=== PATIENT | female | born 1980 | race Caucasian/White ===

== ENCOUNTER 2018-08-07 01:28 | Inpatient (IN) | payer OTHER ==
[2018-08-07] MEDS ORDERED: Lactated Ringers 1000 ML Bag* 1,000 ML IV ONE (02:06)
[2018-08-07] MEDS ORDERED: Buffered Lidocaine 1% SYRIN* 1 ML/SYRINGE INTRADERM ONE (02:06)
[2018-08-07] MEDS ORDERED: Lactated Ringers 1000 ML Bag* 1,000 ML IV SCH ×2 (03:00→08:00)
--- NOTE | 2018-08-07 03:48 | HP ---
General Information - Reason for Visit Pt reports large gush of clear fluid at 0030, with continued trickling of fluid. Mild intermittent ctx. - General Information Maternal Age: 38 Grav: 2 Para: 1 SAB: 0 IEA: 0 Estimated Due Date: 08/01/18 Determined By: LMP Gestational Age in Weeks/Days: 40 6/7 Maternal Blood Type and Rh: O Positive - Results this Serology/RPR Result: Non-Reactive Rubella Result: Immune HBsAg Result: Negative HIV Result: Negative GBS Culture Result: Negative Past Medical History Delivery History: Hx Uncomplicated Vaginal Delivery Pertinent Past Medical History: See Records - depression/ anxiety Pertinent Past Surgical History: See Records - tonsillectomy, sinus surgery Pertinent Family History: See Records - FOB's brother, lidia with transposition of the great vessels - Antepartal Records Antepartal Records: Reviewed, Uncomplicated Review of Systems Constitutional: Comfortable CV Complaint: No Respiratory: Shortness of Breath: No Gastrointestinal: No Nausea/Vomiting, Normal Bowel Movement Genitourinary: Leaking Fluid, No Dysuria, No Bleeding Musculoskeletal: No Complaint, No Epigastric Pain Neurological: No Headache, No Visual Changes Movement: Normal Exam Allergies/Adverse Reactions: Allergies No Known Allergies Allergy (Verified 08/07/18 01:34) T-97.0, P-82, R-18, BP-131/85 - Measurements Height: 5 ft 8.5 in Weight: 95.254 kg Weight in lbs: 210.014644 Body Mass Index (BMI): 31.4 Pre- Weight: 76.204 kg Weight Gained This : 42 lbs and 0 ozs - Exam Breast: Breast Exam Deferred CVA: No CVA Tenderness Extremities: No Edema Heart: Normal Rhythm/Heart Sounds HEENT: No Significant Findings Lungs: Clear Bilaterally Rectal: Rectal Exam Deferred Reflexes: DTR 2+ Thyroid: No Thyromegaly - Abdominal Exam Abdomen Exam: Non-Tender, Fundal Height Consistent with Dates - Ultrasound/Biophysical Profile Ultrasound Status: Not Done Targeted Exam Findings See L&D Outpatient Visit Provider Note for Findings: N/A Estimated Weight: 8# Membrane Status: SROM Amniotic Fluid Evaluation: Gross Rupture - Cervical exam deferred, as pt ruptured and declining labor augmentation at this time Bleeding/Discharge: None EFM Findings - External Monitor Findings Baseline Heart Rate: 135 External Monitor Findings: Accelerations Present, No Pattern of Variable or Late Decelerations, Variability Moderate, Baseline Stable Contractions: Irregular, Mild, 45-90 Seconds - 10-15 minutes Assessment/Plan - Assessment 38 year old at 40 6/7 weeks gestation with prelabor rupture of membranes, GBS negative, no evidence of chorioamnionitis or acidemia - Obstetrical Risk Factors Obstetrical Risk Factors: Post-Dates - Plan Plan: Admit - Anticipate Vaginal Delivery Plan Comment: Discussed options with pt given prelabor rupture of membranes. Counseled that infection is a risk in the presence of ruptured membranes, especially when rupture is prolonged, and that the best way to expedite in the presence of ruptured membranes is augmentation with Pitocin. However, since she has only been ruptured for a few hours, and there are no signs of infection or compromise it is reasonable to wait a little while to see if labor commences spontaneously. Pt prefers to await spontaneous labor. Encouraged her to rest. - Date/Time of Admission Date of Admission: 08/07/18 Time of Admission: 01:56
[2018-08-07] MEDS ORDERED: Witch Hazel PAD* JAR TOPICAL PRN (07:22)
[2018-08-07] MEDS ORDERED: Acetaminophen TAB* 325 MG PO PRN (07:22)
[2018-08-07] MEDS ORDERED: Glycerin ADULT SUPP PR PRN (07:22)
[2018-08-07] MEDS ORDERED: Dibucaine 1% 28.35 GM TUBE PR PRN (07:22)
[2018-08-07] MEDS: Docusate CAP* 100 MG PO SCH ×3 (10:03→22:43)
[2018-08-07] MEDS: Ibuprofen TAB* 600 MG PO PRN ×2 (16:26→22:42)
--- NOTE | 2018-08-07 21:44 | PROCNOTE ---
[facility] OB: Delivery Note - Delivery A Date of : 08/07/18 Time of : 06:37 [place] Sex: Male Weight at : 3.629 kg Score 1 Minute: 9 Score 5 Minutes: 9 Gestational Age in Weeks and Days at Delivery: 40 Weeks and 6 Days Delivery Method: Spontaneous Vaginal Labor: Spontaneous Amniotic Fluid: Clear Estimated Blood Loss: 250 Anesthesia/Analgesia: None Delivered By: Kinjal Gandhi - Nursery Level of Nursery: Regular/Bedside - Perineum Perineal Injury: None/Intact Perineal Repair: None - Events Delivery Events of Note: None Apply - Additional Delivery Notes Additional Delivery Notes: Pt admittted to Labor and Delivery with prelabor rupture of membranes. On arrival she was anton intermittently but not yet in active labor. After discussing options, decision made based on patient preference to manage expectantly. Pt soon progressed into active labor. She coped using labor support , position changes, and counter pressure. She progressed steadily and soon reported increased pressure and an urge to push. Pt examined and found to be fully dilated. She began spontaneous pushing efforts and with some coaching soon pushed effectively, bringing to perineum before long. Pt coached through slow, controlled delivery of the head. Nuchal cord noted, infant delivered using somersault maneuver and cord reduced. placed on maternal abdomen with vigorous cry, good tone, and HR> 100. After cord pulsation ceased cord clamped x2 and cut. Placenta soon delivered with gentle cord traction. Fundal massage performed, vaginal bleeding remained minimal. Examination of the perineum revealed several small hemostatic abrasions, not sutured. Pt's right labia majora observed to be torn and healed, probably from previous delivery, but did not tear again in the same location, so not possible to repair. and mother stable following delivery, anticipate normal course.
[2018-08-08 07:36] LABS: ABS Basophils 0 10^3/ul (0-0.2); ABS Eosinophils 0.1 10^3/ul (0-0.6); ABS Lymphocytes 2.3 10^3/ul (1.0-4.8); ABS Monocytes 0.8 10^3/ul (0-0.8); ABS Neutrophils 8.4 10^3/ul (1.5-7.7); ABS Nucleated RBC 0 10^3/ul; Hematocrit 32 % (33-41); Hemoglobin 10.5 g/dL (12.0-16.0); Lymphocyte % 19.5 %; Mean Corpuscular HGB Conc 33 g/dL (31-36); Mean Corpuscular Hemoglobin 29 pg (27-31); Mean Corpuscular Volume 87 fL (80-97); Mean Platelet Volume 8.7 fL (7.4-10.4); Nucleated Red Blood Cells % 0.1; Platelet Count 200 10^3/uL (150-450); Red Blood Count 3.68 10^6 /uL (3.70-4.87); Red Cell Distribution Width 15 % (10.5-15); White Blood Count 11.6 10^3/uL (3.5-10.8)
[2018-08-08] MEDS: Ibuprofen TAB* 600 MG PO PRN (08:24)
[2018-08-08] MEDS: Docusate CAP* 100 MG PO SCH (08:24)
[2018-08-08] MEDS ORDERED: Ferrous Gluconate TAB* 324 MG TAB PO SCH (09:00)
[2018-08-08 09:22] VITALS: BP 110/60
--- NOTE | 2018-08-08 10:52 | PTEDU ---
Patient Name: AMMADOU MANZANARES MAMADOU MANZANARES selected video: Never Ever Shake a Baby to view on 08/08/2018 at 10:49:48 AM from [id number]
== END 2018-08-08 13:15 | disposition home or self-care (01) | DRG 807 ==
LOC: MCHOBOUT 01:28 → MCHOB 01:56
PROVIDERS: ADMIT Midwife; ATTEND Midwife
PROC: 10E0XZZ Delivery of Products of Conception, External Approach (ICD-10-PCS; principal; 2018-08-07)
PROC: 4A1HXCZ Monitoring of Products of Conception, Cardiac Rate, External Approach (ICD-10-PCS; 2018-08-07)
DX: O48.0 Post-term pregnancy (principal); Z37.0 Single live birth; O69.81X0 Labor and delivery complicated by cord around neck, without compression, not applicable or unspecified; Z3A.40 40 weeks gestation of pregnancy; O71.82 Other specified trauma to perineum and vulva
CPT/HCPCS: 36415; 85025; A9270-GY